=== PATIENT | male | born 1965 | race Caucasian/White ===

== ENCOUNTER 2020-04-14 23:10 | Emergency (ER) | payer MEDICARE, OTHER ==
[~2020-04-14] VITALS: Ht 177.8 cm; Wt 81.8 kg
[2020-04-14 23:13] VITALS: TEMP 97.6
[2020-04-14 23:38] LABS: HEMATOCRIT 41.8 % (42.0-52.0); HEMOGLOBIN 14.4 g/dl (13.5-18.0); MEAN CELL VOLUME 97 fl (80.0-100.0); MEAN CORPUSCULAR HEMOGLOBIN 33 pg (27.0-31.0); MEAN CORPUSCULAR HGB CONC 34 g/dl (33.0-37.0); MEAN PLATELET VOLUME 9.1 fl (7.4-10.4); PLATELET COUNT 303 K/mm3 (130-400); RED BLOOD COUNT 4.32 M/mm3 (4.20-5.60); REDCELL DISTRIBUTION WIDTH-CV 13.6 % (11.5-14.5)
[2020-04-14 23:44] LABS: INR 1.2 (0.8-3.0)
[2020-04-14 23:49] LABS: ALANINE AMINOTRANSFERASE 23 U/L (4-49); ALBUMIN 3.3 gm/dL (3.5-5.0); ALCOHOL(ethanol),MEDICAL 252 mg/dL; ALKALINE PHOSPHATASE 96 U/L (50-136); ANION GAP 8 mmol/L (7-16); AST,SGOT 35 U/L (15-37); BILIRUBIN,TOTAL 0.3 mg/dL (0.0-1.0); BLOOD UREA NITROGEN < 2 mg/dL (9-20); CALCIUM 8.2 mg/dL (8.4-10.2); CARBON DIOXIDE 25 mmol/L (22-30); CHLORIDE 108 mmol/L (98-107); CREATININE, serum 0.83 (0.66-1.25); GLUCOSE 125 mg/dL (74-106); MAGNESIUM 1.9 mg/dL (1.6-2.3); SODIUM 141 mmol/L (137-145); TOTAL PROTEIN 6.3 gm/dL (6.4-8.2)
[2020-04-15 00:04] LABS: LIPASE 133 U/L (23-300)
[2020-04-15 00:19] LABS: BAND 1 % (0-10); EOSINOPHIL 2 % (0-4); LYMPHOCYTE 62 % (20.0-51.0); NEUTROPHILS 31 % (42.0-75.2); PLATELET ESTIMATE NORMAL (NORMAL)
[2020-04-15 00:22] LABS: ACETAMINOPHEN < 10 ug/mL (10-30); SALICYLATE < 1.0 mg/dL
[2020-04-15] MEDS ORDERED: LIBRIUM 25M25 MG/CAP PO (01:28)
[2020-04-15] MEDS ORDERED: ZOFRAN 4MG T4 MG/TAB PO (01:28)
[2020-04-15 04:43] VITALS: BP 140/70; PULSE 77
== END 2020-04-15 04:23 | disposition home or self-care (01) ==
LOC: COL.ER 23:10
PROVIDERS: Emergency Medicine
DX: F10.229 Alcohol dependence with intoxication, unspecified (principal); F17.210 Nicotine dependence, cigarettes, uncomplicated; Y90.8 Blood alcohol level of 240 mg/100 ml or more
CPT/HCPCS: C9113; J7030

== ENCOUNTER 2020-05-12 10:18 | Emergency (ER) | payer MEDICARE, OTHER ==
[~2020-05-12 10:18] MED LIST: LIBRIUM 25M25 MG/CAP PO; ZOFRAN 4MG T4 MG/TAB PO
== END 2020-05-12 10:30 | disposition left against medical advice (07) ==
LOC: COL.ER 10:18
DX: Z72.9 Problem related to lifestyle, unspecified (principal)

== ENCOUNTER 2020-05-13 09:27 | Emergency (ER) | payer MEDICARE, OTHER | END 2020-05-13 09:38 | disposition left against medical advice (07) | LOC: COL.ER 09:27 | DX: R69 Illness, unspecified (principal); Z53.21 Procedure and treatment not carried out due to patient leaving prior to being seen by health care provider ==

== ENCOUNTER 2020-07-04 15:27 | Emergency (ER) | payer MEDICARE, OTHER ==
[~2020-07-04] VITALS: Ht 170.2 cm; Wt 81.8 kg
[2020-07-04] MEDS ORDERED: LIBRIUM 25M25 MG/CAP PO (15:36)
[2020-07-04 16:01] LABS: COLLECTION METHOD CLEAN CATCH
[2020-07-04 16:05] LABS: BASO # 0.1 (0.0-0.2); EOS # 0.4 (0.0-0.7); EOS % 4.4 % (0-4.0); GRAN # 4.3 (1.4-6.5); HEMATOCRIT 41.3 % (42.0-52.0); HEMOGLOBIN 14.2 g/dl (13.5-18.0); LYMPH # 3.5 (1.2-3.4); LYMPH % 38.6 % (20.0-51.0); MEAN CELL VOLUME 101 fl (80.0-100.0); MEAN CORPUSCULAR HEMOGLOBIN 35 pg (27.0-31.0); MEAN CORPUSCULAR HGB CONC 34 g/dl (33.0-37.0); MEAN PLATELET VOLUME 9.4 fl (7.4-10.4); MONO # 0.8 (0.1-0.6); MONO % 8.3 % (1.7-9.3); PLATELET COUNT 312 K/mm3 (130-400); RED BLOOD COUNT 4.08 M/mm3 (4.20-5.60); REDCELL DISTRIBUTION WIDTH-CV 13.9 % (11.5-14.5)
[2020-07-04 16:13] LABS: ALANINE AMINOTRANSFERASE 27 U/L (4-49); ALBUMIN 3.7 gm/dL (3.5-5.0); ALCOHOL(ethanol),MEDICAL 158 mg/dL; ALKALINE PHOSPHATASE 92 U/L (50-136); ANION GAP 9 mmol/L (7-16); AST,SGOT 91 U/L (15-37); BILIRUBIN,TOTAL 0.5 mg/dL (0.0-1.0); CALCIUM 8.4 mg/dL (8.4-10.2); CARBON DIOXIDE 25 mmol/L (22-30); CHLORIDE 105 mmol/L (98-107); CREATININE, serum 0.82 (0.66-1.25); GLUCOSE 109 mg/dL (74-106); POTASSIUM 3.3 mmol/L (3.4-5.0); SODIUM 139 mmol/L (137-145); TOTAL PROTEIN 6.5 gm/dL (6.4-8.2)
[2020-07-04 16:19] LABS: ACETAMINOPHEN < 10 ug/mL (10-30); BLOOD UREA NITROGEN < 2 mg/dL (9-20); SALICYLATE < 1.0 mg/dL
[2020-07-04 16:27] LABS: TRICYCLIC ANTIDEPRESS URINE NEGATIVE
[2020-07-04 16:34] LABS: PH 6 (5-8); SQUAMOUS EPITHELIAL None Seen /hpf; URINE APPEARANCE Clear; URINE BACTERIA None Seen /hpf; URINE BILIRUBIN Negative (NEGATIVE); URINE BLOOD Negative (NEGATIVE); URINE COLOR Colorless; URINE GLUCOSE Negative (NEGATIVE); URINE KETONE Negative (NEGATIVE); URINE LEUKOCYTE ESTERASE Negative (NEGATIVE); URINE NITRATE Negative (NEGATIVE); URINE PROTEIN(semi-quant) Negative (NEGATIVE); URINE RBC 0-2 /hpf; URINE UROBILINOGEN Negative (NEGATIVE)
[2020-07-04 18:42] VITALS: BP 150/98; PULSE 76; TEMP 97.4
== END 2020-07-04 18:44 | disposition home or self-care (01) ==
LOC: COL.ER 15:27
PROVIDERS: Emergency Medicine
DX: F10.129 Alcohol abuse with intoxication, unspecified (principal); Z87.820 Personal history of traumatic brain injury
CPT/HCPCS: J3411; J7030

== ENCOUNTER 2020-07-19 20:49 | Emergency (ER) | payer MEDICARE, OTHER ==
[~2020-07-19] VITALS: Ht 170.2 cm; Wt 84.1 kg
[2020-07-19 21:00] VITALS: TEMP 97.5
[2020-07-19 21:31] LABS: HEMATOCRIT 41.6 % (42.0-52.0); HEMOGLOBIN 14.9 g/dl (13.5-18.0); MEAN CELL VOLUME 97 fl (80.0-100.0); MEAN CORPUSCULAR HEMOGLOBIN 35 pg (27.0-31.0); MEAN CORPUSCULAR HGB CONC 36 g/dl (33.0-37.0); MEAN PLATELET VOLUME 8.9 fl (7.4-10.4); PLATELET COUNT 329 K/mm3 (130-400); REDCELL DISTRIBUTION WIDTH-CV 13.7 % (11.5-14.5)
[2020-07-19 21:44] LABS: ALANINE AMINOTRANSFERASE 69 U/L (4-49); ALBUMIN 3.8 gm/dL (3.5-5.0); ALCOHOL(ethanol),MEDICAL 239 mg/dL; ALKALINE PHOSPHATASE 109 U/L (50-136); ANION GAP 8 mmol/L (7-16); AST,SGOT 127 U/L (15-37); BILIRUBIN,TOTAL 0.5 mg/dL (0.0-1.0); CALCIUM 8.2 mg/dL (8.4-10.2); CARBON DIOXIDE 30 mmol/L (22-30); CHLORIDE 99 mmol/L (98-107); CREATININE, serum 0.77 (0.66-1.25); GLUCOSE 102 mg/dL (74-106); SODIUM 137 mmol/L (137-145); TOTAL PROTEIN 6.8 gm/dL (6.4-8.2)
[2020-07-19 21:44] LABS: TRICYCLIC ANTIDEPRESS URINE NEGATIVE
[2020-07-19 21:46] LABS: ACETAMINOPHEN < 10 ug/mL (10-30); BLOOD UREA NITROGEN < 2 mg/dL (9-20); SALICYLATE < 1.0 mg/dL
[2020-07-19 21:54] LABS: BASOPHIL 1 % (0-2); EOSINOPHIL 2 % (0-4); LYMPHOCYTE 50 % (20.0-51.0); NEUTROPHILS 47 % (42.0-75.2); PLATELET ESTIMATE NORMAL (NORMAL)
[2020-07-20 06:51] VITALS: BP 138/95; PULSE 82
== END 2020-07-20 07:28 | disposition home or self-care (01) ==
LOC: COL.ER 20:49
PROVIDERS: Emergency Medicine
DX: R45.851 Suicidal ideations (principal); F10.129 Alcohol abuse with intoxication, unspecified; F32.9 Major depressive disorder, single episode, unspecified; Z87.820 Personal history of traumatic brain injury

== ENCOUNTER 2020-11-30 16:22 | Emergency (ER) | payer MEDICARE, OTHER ==
[~2020-11-30] VITALS: Ht 170.2 cm; Wt 72.7 kg
[2020-11-30 16:24] VITALS: TEMP 98.5
[2020-11-30 16:49] LABS: COLLECTION METHOD CLEAN CATCH
[2020-11-30 17:01] LABS: PH 5 (5-8); SQUAMOUS EPITHELIAL None Seen /hpf; URINE APPEARANCE Clear; URINE BACTERIA None Seen /hpf; URINE BILIRUBIN Negative (NEGATIVE); URINE BLOOD Negative (NEGATIVE); URINE COLOR Yellow; URINE GLUCOSE Negative (NEGATIVE); URINE KETONE Negative (NEGATIVE); URINE LEUKOCYTE ESTERASE Negative (NEGATIVE); URINE NITRATE Negative (NEGATIVE); URINE PROTEIN(semi-quant) Negative (NEGATIVE); URINE RBC 0-2 /hpf; URINE UROBILINOGEN Negative (NEGATIVE)
[2020-11-30 17:22] LABS: HEMATOCRIT 41.1 % (42.0-52.0); HEMOGLOBIN 14.7 g/dl (13.5-18.0); MEAN CELL VOLUME 97 fl (80.0-100.0); MEAN CORPUSCULAR HEMOGLOBIN 35 pg (27.0-31.0); MEAN CORPUSCULAR HGB CONC 36 g/dl (33.0-37.0); MEAN PLATELET VOLUME 9.1 fl (7.4-10.4); PLATELET COUNT 332 K/mm3 (130-400); RED BLOOD COUNT 4.25 M/mm3 (4.20-5.60); REDCELL DISTRIBUTION WIDTH-CV 12.7 % (11.5-14.5)
[2020-11-30 17:42] LABS: TRICYCLIC ANTIDEPRESS URINE NEGATIVE
[2020-11-30 17:46] LABS: ALANINE AMINOTRANSFERASE 35 U/L (4-49); ALBUMIN 3.7 gm/dL (3.5-5.0); ALCOHOL(ethanol),MEDICAL 194 mg/dL; ALKALINE PHOSPHATASE 119 U/L (50-136); ANION GAP 14 mmol/L (7-16); AST,SGOT 60 U/L (15-37); BILIRUBIN,TOTAL < 0.1 mg/dL (0.0-1.0); CALCIUM 8.5 mg/dL (8.4-10.2); CARBON DIOXIDE 21 mmol/L (22-30); CHLORIDE 100 mmol/L (98-107); CREATININE, serum 0.84 (0.66-1.25); GLUCOSE 114 mg/dL (74-106); POTASSIUM 3.1 mmol/L (3.4-5.0); SODIUM 135 mmol/L (137-145); TOTAL PROTEIN 6.7 gm/dL (6.4-8.2)
[2020-11-30 17:52] LABS: ACETAMINOPHEN < 10 ug/mL (10-30); BLOOD UREA NITROGEN < 2 mg/dL (9-20); SALICYLATE < 1.0 mg/dL
[2020-11-30 18:25] LABS: BAND 2 % (0-10); EOSINOPHIL 6 % (0-4); LYMPHOCYTE 38 % (20.0-51.0); NEUTROPHILS 41 % (42.0-75.2)
[2020-11-30 18:26] LABS: PLATELET ESTIMATE NORMAL (NORMAL)
[2020-12-01] MEDS ORDERED: KLONOPIN 1MG1 MG PO (00:50)
[2020-12-01] MEDS ORDERED: DEPAKOTE ER 50500 MG PO (00:50)
[2020-12-01] MEDS ORDERED: MELATONIN1 MG PO (00:52)
[2020-12-01] MEDS ORDERED: TOPROL XL 50MG50 MG (00:52)
[2020-12-01] MEDS ORDERED: ASPIRIN 81M81 MG/TA2 PO (00:52)
[2020-12-01] MEDS ORDERED: PRILOSEC10 MG PO (00:52)
[2020-12-01 01:26] VITALS: BP 149/100; PULSE 79
== END 2020-12-01 01:30 | disposition home or self-care (01) ==
LOC: COL.ER 16:22
PROVIDERS: Nurse Practitioner
DX: R45.851 Suicidal ideations (principal); F10.129 Alcohol abuse with intoxication, unspecified; F32.9 Major depressive disorder, single episode, unspecified; F17.210 Nicotine dependence, cigarettes, uncomplicated; Z79.82 Long term (current) use of aspirin

== ENCOUNTER 2021-04-06 13:27 | Inpatient (IN) | payer MEDICARE, OTHER ==
[~2021-04-06] VITALS: Ht 170.2 cm; Wt 87.7 kg
[~2021-04-06 13:27] MED LIST changes: +ASPIRIN 81M81 MG/TA2 PO; +DEPAKOTE ER 50500 MG PO; +KLONOPIN 1MG1 MG PO; +MELATONIN1 MG PO; +PRILOSEC10 MG PO; +TOPROL XL 50MG50 MG
[2021-04-06 17:31] LABS: COLLECTION METHOD CLEAN CATCH
[2021-04-06 17:39] LABS: MUCOUS Present /lpf; PH 7 (5-8); SQUAMOUS EPITHELIAL 0-2 /hpf; URINE APPEARANCE Clear; URINE BACTERIA None Seen /hpf; URINE BILIRUBIN Negative (NEGATIVE); URINE BLOOD Negative (NEGATIVE); URINE COLOR Yellow; URINE GLUCOSE Negative (NEGATIVE); URINE KETONE 1+ (NEGATIVE); URINE LEUKOCYTE ESTERASE Negative (NEGATIVE); URINE NITRATE Negative (NEGATIVE); URINE PROTEIN(semi-quant) 2+ (NEGATIVE)
[2021-04-06 17:46] LABS: ALANINE AMINOTRANSFERASE 21 U/L (4-49); ALBUMIN 3.4 gm/dL (3.5-5.0); ALKALINE PHOSPHATASE 73 U/L (50-136); ANION GAP 5 mmol/L (7-16); AST,SGOT 48 U/L (15-37); BILIRUBIN,TOTAL 0.3 mg/dL (0.0-1.0); BLOOD UREA NITROGEN 9 mg/dL (9-20); CARBON DIOXIDE 32 mmol/L (22-30); CHLORIDE 99 mmol/L (98-107); CREATININE, serum 1.07 (0.66-1.25); GLUCOSE 98 mg/dL (74-106); MAGNESIUM 1.9 mg/dL (1.6-2.3); POTASSIUM 3.4 mmol/L (3.4-5.0); SODIUM 136 mmol/L (137-145); TOTAL PROTEIN 6.6 gm/dL (6.4-8.2)
[2021-04-06 17:56] LABS: TROPONIN-I < 0.012 ng/mL (0.000-0.035)
[2021-04-06 18:04] LABS: HEMOGLOBIN 14.2 g/dl (13.5-18.0); MEAN CELL VOLUME 103 fl (80.0-100.0); MEAN CORPUSCULAR HEMOGLOBIN 36 pg (27.0-31.0); MEAN CORPUSCULAR HGB CONC 35 g/dl (33.0-37.0); MEAN PLATELET VOLUME 11.2 fl (7.4-10.4); PLATELET COUNT 93 K/mm3 (130-400); REDCELL DISTRIBUTION WIDTH-CV 13.4 % (11.5-14.5)
[2021-04-06 19:13] LABS: BAND 8 % (0-10); EOSINOPHIL 1 % (0-4); LYMPHOCYTE 11 % (20.0-51.0); MYELOCYTE 1 % (0-0); NEUTROPHILS 72 % (42.0-75.2); PLATELET ESTIMATE DECREASED (NORMAL)
[2021-04-06 21:04] VITALS: BP 112/71; PULSE 77; TEMP 97.5
[2021-04-06] MEDS ORDERED: CHLORASEPTIC 1180 M3 (22:23)
[2021-04-06 23:29] VITALS: BP 127/79; PULSE 71; TEMP 98.3
[2021-04-07 04:00] VITALS: BP 124/78; PULSE 65; TEMP 97.5
--- NOTE | 2021-04-07 05:14 | NUR ---
PT HAD INTERRUPTED SLEEP, 02 REMAINS 2L NC SATURATING OVER 93 PERCENT, PT DENIES N,V,D. PT REPORTS PAIN AT 5 OUT OF 10 THROBBING PAIN TO MID LOWER BACK, AND RIGHT GROIN. PT HAS REMAINED AFEBRILE OVER NIGHT. PT'S COUGH IS PRODUCTIVE AND SCANT. PT EXPRESSES NO ADDITIONAL NEEDS AT THIS TIME. CALL LIGHT WITHIN REACH.
[2021-04-07 07:03] LABS: HEMATOCRIT 42.2 % (42.0-52.0); HEMOGLOBIN 14.6 g/dl (13.5-18.0); MEAN CELL VOLUME 102 fl (80.0-100.0); MEAN CORPUSCULAR HEMOGLOBIN 35 pg (27.0-31.0); MEAN CORPUSCULAR HGB CONC 35 g/dl (33.0-37.0); MEAN PLATELET VOLUME 11.4 fl (7.4-10.4); PLATELET COUNT 111 K/mm3 (130-400); RED BLOOD COUNT 4.15 M/mm3 (4.20-5.60); REDCELL DISTRIBUTION WIDTH-CV 13.3 % (11.5-14.5)
[2021-04-07 07:12] LABS: ALBUMIN 3.3 gm/dL (3.5-5.0); BILIRUBIN,TOTAL 0.2 mg/dL (0.0-1.0); CREATININE, serum 0.88 (0.66-1.25); MAGNESIUM 2.2 mg/dL (1.6-2.3); POTASSIUM 3.6 mmol/L (3.4-5.0); TOTAL PROTEIN 6.5 gm/dL (6.4-8.2)
[2021-04-07 07:17] LABS: COLLECTION METHOD CLEAN CATCH
[2021-04-07 07:23] LABS: MUCOUS Present /lpf; PH 6 (5-8); SQUAMOUS EPITHELIAL 0-2 /hpf; URINE APPEARANCE Clear; URINE BACTERIA None Seen /hpf; URINE BILIRUBIN Negative (NEGATIVE); URINE BLOOD Negative (NEGATIVE); URINE COLOR Yellow; URINE GLUCOSE 3+ (NEGATIVE); URINE KETONE Trace (NEGATIVE); URINE LEUKOCYTE ESTERASE Negative (NEGATIVE); URINE NITRATE Negative (NEGATIVE); URINE PROTEIN(semi-quant) Negative (NEGATIVE); URINE RBC 0-2 /hpf
[2021-04-07 07:26] LABS: C-REACTIVE PROTEIN 15.3 mg/dL (0.0-0.9)
[2021-04-07 07:39] VITALS: BP 118/79; PULSE 66; TEMP 98.3
[2021-04-07 08:43] LABS: BAND 7 % (0-10); BASOPHIL 2 % (0-2); BURR CELLS 1+; LYMPHOCYTE 19 % (20.0-51.0); NEUTROPHILS 67 % (42.0-75.2); PLATELET ESTIMATE DECREASED (NORMAL)
--- NOTE | 2021-04-07 10:26 | NUR ---
Sceduled medication given. Shift assessment preformed. Patient currently requiring 1 L of 02 via nasal cannula. K+ replaced per protocol. Patient denies any pain, discomfort, or further needs at this time. VSS. Call light in reach.
[2021-04-07 12:07] VITALS: BP 110/79; PULSE 63; TEMP 97.8
--- NOTE | 2021-04-07 14:37 | NUR ---
The patient is COVID positive. EVERETT contacted the patient's room phone to discuss discharge plan. The patient lives alone in [facility] in [place]. He reports independence with ADLs and has a cane. The patient's PCP is Dr. Payton at the [facility] and he receives his medications from Bob. He reports no difficulties obtaining his meds. The patient does not have a DPOA-HC, but he was interested in completing one while here. The patient verbalized that he wants to designate his friend, Kana "Dru" Rolanda (ph#[phone]). Dru lives 12 miles outside of [place]. The patient did not want to designate an alternate. EVERETT collaborated with the patient's RN to obtain signature. EVERETT and the patient's RN, Brittni, witnessed the patient's signature. SW placed a copy in the patient's chart and placed the patient's copies on top of his chart. The patient plans to return home upon discharge. He is currently on 1 liter of oxygen. SW to continue to monitor. EVERETT contacted and updated the patient's friend, Kana, on the above. Kana is agreeable with being the patient's DPOA-HC. *Discharge plan: home*
[2021-04-07 16:00] VITALS: BP 114/77; PULSE 70; TEMP 98
--- NOTE | 2021-04-07 19:10 | NUR ---
Patient has had an ok day. PRN Tramadol given as ordered for aching back pain rated a 7/10 that is aggravated by cough. Tessalon pearls given as ordered. Patient is currently requiring 1 L of O2 via nasal cannula. Patient has not C/O any N/V/D. Denies any further pain, discomfort, or needs at this time. VSS. Call light in reach.
[2021-04-07 20:10] VITALS: BP 118/77; PULSE 65; TEMP 98
[2021-04-07 23:57] VITALS: BP 125/79; PULSE 80; TEMP 98.7
[2021-04-08 04:00] VITALS: BP 110/71; PULSE 83; TEMP 102
--- NOTE | 2021-04-08 05:27 | NUR ---
THIS NURSE WALKED IN PT'S ROOM AND NC WAS OFF, PT DESATTED TO 79, THIS NURSE PLACED NC BACK ON TO 7L, PT CLIMBED TO 92, PT CURRENTLY REMAINS ON 6L 02 NC, NURSE WILL WEAN IF NECESSARY. PT TEMPERATURE RECORDED AT 102.1 ORALLY, HOSPITALIST CONTACTED AND TYLENOL ADMINISTERED ORDERED. NURSE WILL F/U.
[2021-04-08 07:07] LABS: CALCIUM 8.1 mg/dL (8.4-10.2); CREATININE, serum 1.2 (0.66-1.25); POTASSIUM 3.5 mmol/L (3.4-5.0)
[2021-04-08 07:11] LABS: HEMOGLOBIN 13.3 g/dl (13.5-18.0); MEAN CELL VOLUME 102 fl (80.0-100.0); MEAN CORPUSCULAR HEMOGLOBIN 35 pg (27.0-31.0); MEAN CORPUSCULAR HGB CONC 34 g/dl (33.0-37.0); MEAN PLATELET VOLUME 10.8 fl (7.4-10.4); PLATELET COUNT 169 K/mm3 (130-400); RED BLOOD COUNT 3.83 M/mm3 (4.20-5.60); REDCELL DISTRIBUTION WIDTH-CV 13.3 % (11.5-14.5)
[2021-04-08 08:48] VITALS: BP 97/57; PULSE 89; TEMP 101.5
[2021-04-08 11:10] VITALS: BP 92/80; PULSE 83; TEMP 99.3
[2021-04-08 16:02] VITALS: BP 139/71; PULSE 72; TEMP 97.7
--- NOTE | 2021-04-08 19:24 | NUR ---
Patient has had an ok day. At the beginning of the shift patient had a temp of 101.5. PRN tylenol given as ordered. Temp rechecked and it read 99.3. Patient currently requiring 4 L of O2 via nasal cannula. Scheduled medications given. VSS. Nicotine patch placed on right upper arm, patient informed me 30 min later that it had fallen off and he had thrown it away. Patient answers orientation questions correctly, but is experiencing intermittent confusion. Patient denies any pain, discomfort, or further needs at this time. Call light in reach.
[2021-04-08 20:00] VITALS: BP 107/81; PULSE 72; TEMP 98.3
[2021-04-09 00:35] VITALS: BP 108/75; PULSE 67; TEMP 98.3
[2021-04-09 04:00] VITALS: BP 106/79; PULSE 63; TEMP 97.9
--- NOTE | 2021-04-09 05:56 | NUR ---
PT REMAINS ON 8L NC SATURATING 93,94 PERCENT. PT HAD CHILLS AND SWEATS OVER NIGHT AND REMAINED AFEBRILE. PT REPORTS PAIN 4/10 TO BACK AND THROAT. VSS. PT WAS ABLE TO SHOWER INDEPENDENTLY. PT EXPRESSE NO ADDITIONAL NEEDS AT THIS TIME. CALL LIGHT WITHIN REACH.
[2021-04-09 06:29] LABS: HEMATOCRIT 38.2 % (42.0-52.0); HEMOGLOBIN 12.7 g/dl (13.5-18.0); MEAN CELL VOLUME 105 fl (80.0-100.0); MEAN CORPUSCULAR HEMOGLOBIN 35 pg (27.0-31.0); MEAN CORPUSCULAR HGB CONC 33 g/dl (33.0-37.0); MEAN PLATELET VOLUME 10.5 fl (7.4-10.4); PLATELET COUNT 202 K/mm3 (130-400); RED BLOOD COUNT 3.65 M/mm3 (4.20-5.60); REDCELL DISTRIBUTION WIDTH-CV 13.4 % (11.5-14.5)
[2021-04-09 06:39] LABS: ALBUMIN 3.1 gm/dL (3.5-5.0); BILIRUBIN,TOTAL 0.1 mg/dL (0.0-1.0); CALCIUM 8.4 mg/dL (8.4-10.2); MAGNESIUM 2.1 mg/dL (1.6-2.3); POTASSIUM 4.3 mmol/L (3.4-5.0); TOTAL PROTEIN 6.2 gm/dL (6.4-8.2)
[2021-04-09 08:39] VITALS: BP 117/84; PULSE 61; TEMP 97.5
[2021-04-09 11:08] VITALS: BP 121/82; PULSE 77; TEMP 97.9
[2021-04-09 15:21] VITALS: BP 114/76; PULSE 65; TEMP 98
--- NOTE | 2021-04-09 19:05 | NUR ---
Pt had uneventful day, was up independently in the room. Remains on 5L O2 via NC, dyspnea improved today. New IV started to RFA. Generalized everyday pain, did not require any pain medications. Good appetite. No needs at this time. Call light within reach.
[2021-04-09 20:22] VITALS: BP 114/69; PULSE 68; TEMP 97.9
--- NOTE | 2021-04-09 22:22 | NUR ---
ALERT AND OX4. PT RATING PAIN 8/10 IN LOWER BACK. SOA WHEN UP AMBULATING. DENIES CHEST PAIN OR DIZZY. PM MEDS GIVEN. POC DISCUSSED. NEEDS MET
[2021-04-10 00:23] VITALS: BP 115/67; PULSE 50; TEMP 98.7
--- NOTE | 2021-04-10 04:44 | NUR ---
rested through the night without incident. Need met.
[2021-04-10 04:48] VITALS: BP 109/73; PULSE 63; TEMP 97.8
--- NOTE | 2021-04-10 07:00 | NUR ---
Report received from [facility] [place]. PT in bed resting, sitting up and requesting black coffee, will provide.
[2021-04-10 09:03] VITALS: BP 120/84; PULSE 74; TEMP 97.5
--- NOTE | 2021-04-10 10:46 | NUR ---
Assessment charted. Pt in bed resting, upon entry with PT personel pt able to get up ad josee, move around, pt states that he has been up and about in room cleaning it. Requesting items to shower today, will provide. Pt taking PO well, nicotene patch appleid. C/o pain, genrealized to joints and low back, will provide pain meds. Denies other needs, will continue to montor. INT to RFA.
[2021-04-10 10:55] LABS: HEMOGLOBIN 12.9 g/dl (13.5-18.0); MEAN CELL VOLUME 104 fl (80.0-100.0); MEAN CORPUSCULAR HEMOGLOBIN 35 pg (27.0-31.0); MEAN CORPUSCULAR HGB CONC 34 g/dl (33.0-37.0); MEAN PLATELET VOLUME 10.3 fl (7.4-10.4); PLATELET COUNT 294 K/mm3 (130-400); RED BLOOD COUNT 3.64 M/mm3 (4.20-5.60); REDCELL DISTRIBUTION WIDTH-CV 13.4 % (11.5-14.5)
[2021-04-10 10:56] LABS: ALBUMIN 3.1 gm/dL (3.5-5.0); BILIRUBIN,TOTAL 0.1 mg/dL (0.0-1.0); CALCIUM 8.6 mg/dL (8.4-10.2); CREATININE, serum 0.88 (0.66-1.25); MAGNESIUM 1.9 mg/dL (1.6-2.3); POTASSIUM 3.8 mmol/L (3.4-5.0); TOTAL PROTEIN 6.2 gm/dL (6.4-8.2)
[2021-04-10 12:15] VITALS: BP 105/64; PULSE 63; TEMP 97.7
[2021-04-10 17:03] VITALS: BP 118/76; PULSE 67; TEMP 98.1
--- NOTE | 2021-04-10 18:26 | NUR ---
Pt doing well, up independently to shower this afternoon, resting quietly, denies needs, tried to assist with calling DPOA and number disconnected. Reting in bed, will give report to taco sims hwo will resume care.
[2021-04-10 20:00] VITALS: BP 118/76; PULSE 67; TEMP 98.1
[2021-04-11 00:28] VITALS: BP 120/74; PULSE 74; TEMP 99.1
[2021-04-11 04:14] VITALS: BP 122/71; PULSE 90; TEMP 98.6
--- NOTE | 2021-04-11 06:27 | NUR ---
PATIENT RESTING IN BED, INDEPENDENT IN ROOM. ON 6 L HF NC. SOB WITH ACTIVITY. C/O BACK PAIN TRAMADOLE 50 MG GIVEN WITH GOOD EFFECT. VSS. AFEBRILE. CALL LIGHT WITHING REACH, BED LOW AND LOCKED. WILL CONTINUE TO MONITOR.
[2021-04-11 08:32] VITALS: BP 118/81; PULSE 56; TEMP 97.8
[2021-04-11 12:00] VITALS: BP 135/84; PULSE 62; TEMP 97.8
[2021-04-11 16:13] VITALS: BP 133/92; PULSE 66; TEMP 98.3
--- NOTE | 2021-04-11 16:27 | NUR ---
Patient has been resting in bed most of the day. He continues to remain independent in the room. Patient was given PRN tramadol for back pain and PRN robitussin for his cough. Patient has been using cholaseptic throat spray frequently and has requested a new bottle. Pharmacy was notified and stated they would get a new bottle brought up before they leave... When this RN went in to do 1600 VS, patient was at 85% on 5L HFNC. This RN instructed the patient to sit up straight and begin taking deep breaths in through the nose and out through the mouth. The patient did so and would not go about 89%. This RN increased the rate to 7L HFNC, and the patient stayed at 92%. RT was notified. RT stated she had weaned the patient down from 8L to 7L and was not sure who turned it down to 5L. It is speculated that one of the physicians did so.
[2021-04-11 19:18] VITALS: BP 119/79; PULSE 54; TEMP 98.3
[2021-04-12] VITALS (7 sets, daily range): BP systolic 96–119; BP diastolic 65–76; PULSE 5–93; TEMP 96.9–98.4
[2021-04-12 05:48] LABS: HEMATOCRIT 40.1 % (42.0-52.0); HEMOGLOBIN 13.3 g/dl (13.5-18.0); MEAN CELL VOLUME 106 fl (80.0-100.0); MEAN CORPUSCULAR HEMOGLOBIN 35 pg (27.0-31.0); MEAN CORPUSCULAR HGB CONC 33 g/dl (33.0-37.0); MEAN PLATELET VOLUME 9.8 fl (7.4-10.4); RED BLOOD COUNT 3.78 M/mm3 (4.20-5.60); REDCELL DISTRIBUTION WIDTH-CV 13.5 % (11.5-14.5)
[2021-04-12 05:53] LABS: PLATELET COUNT 446 K/mm3 (130-400)
[2021-04-12 05:56] LABS: CALCIUM 9.1 mg/dL (8.4-10.2); CREATININE, serum 0.9 (0.66-1.25); MAGNESIUM 1.9 mg/dL (1.6-2.3); POTASSIUM 4.4 mmol/L (3.4-5.0)
--- NOTE | 2021-04-12 06:23 | NUR ---
PATIENT RESTING IN BED. NO EVENT OVERNIGHT. OCCASIONIAL COUGHING COUGH MEDICATION GIVEN ORDERED X2. TRAMADOL 0 MG GIVEN X2 FOR BACK PAIN. SOB WITH ACTIVITY AND AT REST, ON 6L NC. PATIENT INDEPENDENT IN ROOM. CALL LIGHT WITHIN REACH. WILL CONTINUE TO MONITOR.
[2021-04-12 06:54] LABS: BAND 6 % (0-10); EOSINOPHIL 1 % (0-4); LYMPHOCYTE 39 % (20.0-51.0); METAMYELOCYTE 4 % (0-0); MYELOCYTE 3 % (0-0); NEUTROPHILS 41 % (42.0-75.2); PLATELET ESTIMATE NORMAL (NORMAL)
--- NOTE | 2021-04-12 09:00 | NUR ---
Pt awake and alert upon entry, talkative and appropriate. Has C/O pain 2-3/10 at this time. Shift assessments complete, no issues noted. Left Pt call light in reach, bed in lowest position.
--- NOTE | 2021-04-12 16:23 | NUR ---
The patient remains on 6 liters of oxygen via high flow cannula. EVERETT contacted the patient to follow up. The patient confirms that he still plans on returning home upon discharge. He states that he would be interested in getting some grab bars installed. EVERETT informed him that if he spoke to his landlord, that they could help install them. The patient reports [facility] in the past and would be interested in them doing this again. EVERETT to contact the [facility].
--- NOTE | 2021-04-12 18:39 | NUR ---
Pt sleeping on and off during the day. Pt has not been eating / drinking. No C/O pain. On O2 40 LPM at 40%. VS have remained stable.
[2021-04-13] VITALS (7 sets, daily range): BP systolic 12–116; BP diastolic 57–79; PULSE 56–78; TEMP 96.8–98
--- NOTE | 2021-04-13 00:20 | NUR ---
Pt alert and oriented. Expiratory wheezes auscultated in right lobes, heard most prominently in right upper lobe. Pt reported pain in knees and hip, states pain is from previous career field. Pt given prn tramadol per orders. Pt reports falling and hitting head prior to coming to hospital. Pt able to converse freely.
--- NOTE | 2021-04-13 05:01 | NUR ---
Pt currently on 6L O2 with saturations of 94%. Pt able to converse freely and express needs. Pt expressed pain from previous chronic issues, managed with prn pain medication per orders. Pt continues on potassium protocol, will continue to monitor with AM labs. Pt free from injury this shift.
--- NOTE | 2021-04-13 10:59 | NUR ---
Patient sitting up in bed when this RN entered the room. Patient asked how long it would be until he goes home, this RN explained that the hospitalist would see him and make that decision. Overall, patient has no complaints. This RN encouraged the patient to keep his oxygen on and to call if he needed anything.
--- NOTE | 2021-04-13 11:57 | NUR ---
EVERETT contacted the [facility] and obtained their social human services assistants, Mayanks, phone number [phone]. EVERETT contacted Monica and updated her on the patient's request for grab bars being installed in his apartment, by them. Monica reports that this is something that they can do. PT is is also recommending HH. Monica reports that the patient can chose a home health agency, but that they may need a request for service form completed, for their doctor to follow for home health and for the in home equipment. She reports that she will contact EVERETT back, once she knows. EVERETT attempted to contact the patient's room phone to discussed home health. His phone was busy. SW to attempt to contact the patient again at a later time.
--- NOTE | 2021-04-13 16:13 | NUR ---
SW contacted the patient to discuss PT's recommendation for home health and [facility] about the [facility]. The patient reports that he would be interested in home health. SW reviewed Medicare.gov's list of home health agencies that serve [place] with the patient. The patient was agreeable to [facility]. EVERETT contacted and faxed a referral to Nyasia at [facility]. Awaiting screen.
--- NOTE | 2021-04-13 16:33 | NUR ---
Monica, [place] geriatric social work professor, contacted EVERETT back. Monica reports that they do not require a request for services form. She reports that they just need the doctors notes and recommendations to get the home health approved through the doctor. . EVERETT faxed the patient's records to Monica. EVERETT will need to fax the patient's d/c orders to Monica upon discharge.
--- NOTE | 2021-04-13 18:19 | NUR ---
Patient has done well. Remains free of complaints. A&Ox4 and independent in room. Overall, the day was uneventful for this patient.
--- NOTE | 2021-04-13 19:23 | NUR ---
POTASSIUM PROTOCOL DOCUMENTATION COMPLETED. NO NEW LABS DRAWN THIS AM FOR POTASSIUM CHECK. LAST POTASSIUM VALUE 4.4 04/12/21. GFR 88 04/12/21.
--- NOTE | 2021-04-13 23:12 | NUR ---
PT ALERT AND ORIENTED, ABLE TO CONVERSE FREELY. PT CURRENTLY ON 4L VIA NC, PT DENIES SHORTNESS OF AIR AND STATES HE FEELS BETTER TODAY. DIMINISHED LUNG SOUNDS AUSCULTATED IN LEFT UPPER LOBE, ALL RIGHT LOBES AND LEFT LOWER LOBE CLEAR UPON AUSCULTATION. PT REPORTED PAIN 7/10 FROM PREVIOUS INJURIES, MANAGED WITH PRN MEDICATION PER ORDERS. PT REPORTS TOLERATING INDEPENDENT AMBULATION IN ROOM. PT REQUEST PRN COUGH MEDICATON, ADMINISTERED PER ORDERS. PT'S CALL LIGHT RICKLES ALEXANDRA. NO OTHER NEEDS EXPRESSED AT THIS TIME.
[2021-04-14 00:11] VITALS: BP 96/71
--- NOTE | 2021-04-14 00:12 | NUR ---
PT BP DOCUMENTED AT 99/58, RECHECKED 96/71 SITTING. PT DROWSY, WILL CONTINUE TO MONITOR. OTHER VS STABLE AT THIS TIME.
[2021-04-14 03:56] VITALS: BP 100/66; PULSE 60; TEMP 97.6
--- NOTE | 2021-04-14 04:42 | NUR ---
PT BEDSIDE COMPUTER NOT WORKING FOR SCANNIG MEDICATION. CALLED CHARGE NURSE TO HELP TROUBLE SHOOT
--- NOTE | 2021-04-14 05:12 | NUR ---
PT ALERT AND ORIENTED THIS SHIFT. PT COMPLAINED OF BACK, KNEE, AND HIP PAIN FROM PREVIOUS INJURIES, SPECIFICALLY IN BACK TONIGHT. PAIN MANAGED WITH PRN PAIN MEDICATION PER ORDERS. PT BLOOD PRESSURE NOTED TO BE LOW DURING 0000 VITAL SIGNS. PAIN MEDICATION HELD TO MONITOR BLOOD PRESSURE. BLOOD PRESSURE RETURNED TO BASELINE FOR 0400 VITALS, PRN PAIN MEDICATION ADMINISTERED PER PT REQUEST. PT ABLE TO CONVERSE FREELY AND EXPRESS NEEDS. PT TOLERATES INDEPENDENT AMBULATION IN ROOM.
[2021-04-14 07:10] LABS: HEMATOCRIT 40.1 % (42.0-52.0); HEMOGLOBIN 13.6 g/dl (13.5-18.0); MEAN CELL VOLUME 104 fl (80.0-100.0); MEAN CORPUSCULAR HEMOGLOBIN 35 pg (27.0-31.0); MEAN CORPUSCULAR HGB CONC 34 g/dl (33.0-37.0); MEAN PLATELET VOLUME 9.8 fl (7.4-10.4); PLATELET COUNT 516 K/mm3 (130-400); RED BLOOD COUNT 3.84 M/mm3 (4.20-5.60); REDCELL DISTRIBUTION WIDTH-CV 13.5 % (11.5-14.5)
[2021-04-14 07:16] LABS: C-REACTIVE PROTEIN 1.2 mg/dL (0.0-0.9); CALCIUM 9.1 mg/dL (8.4-10.2); CREATININE, serum 0.96 (0.66-1.25); POTASSIUM 4.2 mmol/L (3.4-5.0)
[2021-04-14 08:17] LABS: BAND 3 % (0-10); LYMPHOCYTE 27 % (20.0-51.0); NEUTROPHILS 49 % (42.0-75.2)
[2021-04-14 08:32] LABS: METAMYELOCYTE 2 % (0-0)
[2021-04-14 08:33] LABS: MYELOCYTE 11 % (0-0)
[2021-04-14 08:35] LABS: PLATELET ESTIMATE INCREASED (NORMAL)
[2021-04-14 08:41] VITALS: BP 105/68; PULSE 72; TEMP 98.1
--- NOTE | 2021-04-14 09:28 | NUR ---
Patient sitting up in bed upon entering the room. Patient asked when he could go home, this RN explained that the hospitalist would see him today and discuss discharge planning and when that would occur. Patient had no difficulty with taking morning medications. Assessment was completed and patient has no complaints at this time. Patient was instructed to use his call light if he needed anything.
[2021-04-14 10:52] LABS: PATHOLOGY DIFF REVIEW OK
[2021-04-14] MEDS ORDERED: DECADRON6 MG PO (11:59)
[2021-04-14] MEDS ORDERED: TESSALON PERLE200 MG PO (12:00)
[2021-04-14] MEDS ORDERED: MUCINEX DM 30 M1 TE1 PO (12:00)
[2021-04-14] MEDS ORDERED: LASIX 20MG TABL20 MG PO (12:00)
[2021-04-14] MEDS ORDERED: RT Albuterol HFA MDI IH (12:01)
[2021-04-14] MEDS ORDERED: TYLENOL 325MG325 MG PO (12:01)
[2021-04-14] MEDS ORDERED: RT Anoro Ellipta IH (12:02)
[2021-04-14] MEDS ORDERED: ANORO IH (12:03)
[2021-04-14] MEDS ORDERED: ULTRAM 50MG TAB50 MG PO (12:04)
[2021-04-14] MEDS ORDERED: OXYGEN (12:06)
[2021-04-14 13:15] VITALS: BP 104/70; PULSE 82; TEMP 97.5
--- NOTE | 2021-04-14 13:19 | NUR ---
Dino, at [facility], reports that they are able to accept the patient for services. RT notified SW that the patient qualified for 2 liters of oxygen. The hospitalist is ready to d/c the patient today. SW contacted the patient to review d/c plan and to discuss the oxygen. The patient is in agreement to the plan. The patient states that his friend, Kana, will be transporting him home. He is in agreement to getting the oxygen from [facility]. SW read the IM form outloud to the patient. The patient verbalized understanding and gave SW approval to sign the form on his behalf. SW contacted and faxed the oxygen order to Viridiana at [facility]. Awaiting delivery of oxygen. The patient is to discharge back home today, 04/14, with home health services for prison/PT/OT from [facility]. SW notified and faxed d/c orders to Dino at [facility]. SW notified and faxed the patient's d/c orders to Monica social media intern, with the [facility] Red Team. No additional needs at this time.
--- NOTE | 2021-04-14 14:48 | NUR ---
Boni, at [facility], delivered the patient's oxygen to his room. EVERETT notified the patient's RN. No additional needs at this time.
--- NOTE | 2021-04-14 16:45 | NUR ---
Patient discharged by this RN without difficulty. Education was provided on home oxygen use.
== END 2021-04-14 16:30 | disposition home health service (06) | DRG 177 ==
LOC: COL.ER 13:27 → MEDICAL 16:03
PROVIDERS: Internal Medicine; Personal Emergency Response Attendant; ADMIT Family Medicine
PROC: XW033E5 Introduction of Remdesivir Anti-infective into Peripheral Vein, Percutaneous Approach, New Technology Group 5 (ICD-10-PCS; principal; 2021-04-06)
DX: U07.1 COVID-19 (principal); J12.82 Pneumonia due to coronavirus disease 2019; J96.01 Acute respiratory failure with hypoxia; J44.0 Chronic obstructive pulmonary disease with (acute) lower respiratory infection; F17.210 Nicotine dependence, cigarettes, uncomplicated; F41.9 Anxiety disorder, unspecified; F43.10 Post-traumatic stress disorder, unspecified; K21.9 Gastro-esophageal reflux disease without esophagitis; G40.909 Epilepsy, unspecified, not intractable, without status epilepticus; D69.6 Thrombocytopenia, unspecified; R50.9 Fever, unspecified; R94.5 Abnormal results of liver function studies; R19.7 Diarrhea, unspecified; G72.89 Other specified myopathies; Z87.820 Personal history of traumatic brain injury; Z79.82 Long term (current) use of aspirin
CPT/HCPCS: 99232-AI; 99233-AI; 99239; A9284; J0696; J1100; J1650; J2930; J7030; J7050; Q9967